=== PATIENT | male | born 1950 | race Caucasian/White ===

== ENCOUNTER 2017-11-07 15:38 | Outpatient (CLI) | payer OTHER ==
--- NOTE | 2017-11-07 17:21 | RAD ---
SIX VIEWS OF THE CERVICAL SPINE 11/07/17 COMPARISON: None. HISTORY: Cervical spine pain, neck pain, preoperative examination. FINDINGS: Incompletely imaged midline sternotomy wires are present. Multiple old right sided rib fractures note d. Old right clavicle fracture. Open mouth odontoid view demonstrates a normal appearing dens and C1-2 articulation. There is multile arian bilateral facet and uncovertebral osteophyte formation, left greater than right, most prominent a t the C3-4 level. Neutral lateral imaging demonstrates prominent anterior osteophyte formation at C2- 3, C3-4, C4-5, C5-6 and C6-7. On the neutral lateral examination, the C6-7 and C7-T1 levels are poorl y assessed. No anterolisthesis or retrolisthesis noted on neutral, flexion, or extension imaging. Of note, the C6-7 and C7-T1 levels are both not well visualized on flexion or extension imaging. A [facility] er's lateral neutral view demonstrates a normal cervicothoracic junction. IMPRESSION: Multilevel degenerative changes within the cervical spine as described above. POS: [facility]
== END 2017-11-07 15:39 | disposition home or self-care (01) ==
LOC: TBSIIMAG 15:38
PROVIDERS: ATTEND Surgery
DX: M54.2 Cervicalgia (principal); M47.892 Other spondylosis, cervical region
CPT/HCPCS: 72050

== ENCOUNTER 2018-02-18 11:32 | Outpatient (CLI) | payer OTHER ==
[2018-02-18 14:11] LABS: INR-International Normal Ratio 0.9; PTT 28.2 SEC (22.9-36.1); Prothrombin Time 12.4 SEC (12.0-14.7)
--- NOTE | 2018-02-18 19:29 | EKG ---
Test Reason : Blood Pressure : / mmHG Vent. Rate : 071 BPM Atrial Rate : 071 BPM P-R Int : 184 ms QRS Dur : 112 ms QT Int : 380 ms P-R-T Axes : 050 015 034 degrees QTc Int : 412 ms Normal sinus rhythm Nonspecific T wave abnormality Abnormal ECG No previous ECGs available Confirmed by JOHNSON BLANK, DR. Frederick ([id number]) on 02/18/2018 7:29:29 PM Referred By: ADI Confirmed By:DR. Yoly ORNELAS MD
== END 2018-02-18 11:33 | disposition home or self-care (01) ==
LOC: LABBT 11:32
PROVIDERS: ATTEND Surgery
DX: Z01.818 Encounter for other preprocedural examination (principal); M47.12 Other spondylosis with myelopathy, cervical region
CPT/HCPCS: 85610; 85730; 93005; 93010

== ENCOUNTER 2018-02-21 10:00 | Inpatient (IN) | payer OTHER ==
[2018-02-21] MEDS ORDERED: ePHEDrine/0.9% NaCl/PF SYRINGE 50 mg/10 ml ONE (11:31)
[2018-02-21] MEDS ORDERED: Glycopyrrolate 0.2 MG/ML 5 ML SYRINGE ONE (11:31)
[2018-02-21] MEDS ORDERED: PROVENTIL INHALER 6.7 G (200 INHALATIONS) ONE (11:31)
[2018-02-21] MEDS ORDERED: Ondansetron PF 4 MG/2 ML Vial ONE (11:31)
[2018-02-21] MEDS ORDERED: Dexamethasone 20 MG/5 ML VIAL ONE (11:31)
[2018-02-21] MEDS ORDERED: Lidocaine 1% PF 5 ML VIAL ONE (11:31)
[2018-02-21] MEDS ORDERED: PROPOFOL 200 MG/20 ML VIAL ONE (11:31)
[2018-02-21] MEDS ORDERED: CEFAZOLIN 2 GM/50 ML BAG ONE (12:55)
[2018-02-21] MEDS ORDERED: Sodium Chloride 0.9% 10 ML ONE (13:32)
[2018-02-21] MEDS ORDERED: Thrombin 5000 UNITS/5 ML VIAL ONE (13:32)
[2018-02-21] MEDS ORDERED: Fentanyl 100 MCG/2 ML VIAL ONE (13:55)
[2018-02-21] MEDS ORDERED: Bacitracin Zinc Ointment 30 gm TUBE ONE (14:58)
[2018-02-21] MEDS ORDERED: SUGAMMADEX SODIUM 500 MG/5 ML VIAL ONE (15:10)
[2018-02-21] MEDS ORDERED: Bisacodyl 10 MG SUPP PR PRN (15:31)
[2018-02-21] MEDS ORDERED: Milk Of Magnesia 30 ML UDCUP PO PRN (15:31)
[2018-02-21] MEDS ORDERED: Fleet Enema 133 ML BOT PR PRN (15:31)
[2018-02-21] MEDS ORDERED: Mag-Al 1200 mg/1200 mg/30 ML UDCUP PO PRN (15:31)
[2018-02-21] MEDS ORDERED: traMADol HCl 50 MG TAB PO PRN (15:31)
[2018-02-21] MEDS ORDERED: HYDROcodone/Acetaminophen 7.5/325 mg Tablet PO PRN (15:31)
[2018-02-21] MEDS ORDERED: Acetaminophen 325 MG TAB PO PRN (15:31)
[2018-02-21] MEDS ORDERED: Sodium Chloride 0.9% 1,000 ML IV SCH (15:45)
[2018-02-21] MEDS ORDERED: Promethazine HCl 25 MG/ML VIAL SLOW IVP PRN (16:12)
[2018-02-21] MEDS ORDERED: PACU-Morphine 4MG/ML VIAL SLOW IVP PRN (16:12)
[2018-02-21] MEDS ORDERED: Ondansetron HCl/PF 4 MG/2 ML Vial IVP PRN (16:12)
[2018-02-21] MEDS ORDERED: Promethazine HCl 25 MG/ML VIAL IM PRN (16:12)
[2018-02-21] MEDS ORDERED: Morphine Sulfate 2 MG/ML SYRINGE SLOW IVP PRN (16:12)
[2018-02-21] MEDS ORDERED: HYDROmorphone 2 MG/ML VIAL SLOW IVP PRN (16:12)
[2018-02-21 17:02] VITALS: BP 124/61; BMI 37.7
[2018-02-21] MEDS: Baclofen 10 MG TAB PO SCH ×2 (17:51→20:01)
[2018-02-21] MEDS: Gabapentin 400 MG CAP PO SCH (20:01)
[2018-02-21] MEDS: Carvedilol 25 MG TAB PO SCH (20:01)
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
[2018-02-21] MEDS ORDERED: Atorvastatin Calcium 40 MG TAB PO SCH (21:00)
[2018-02-21] MEDS ORDERED: Losartan/Hydrochlorothiazide 100 mg/25 mg Tablet PO SCH (21:00)
[2018-02-21] MEDS ORDERED: Insulin Regular 300 UNITS/3 ML VIAL SC SCH (21:30)
[2018-02-21] MEDS ORDERED: Dextrose 50% Abboject 50 ML SYRINGE IVP PRN (22:18)
[2018-02-21] MEDS ORDERED: Dextrose 5% in Water 1,000 ML IV PRN (22:18)
[2018-02-21] MEDS: HumaLOG 300 UNITS/3 ML VIAL SC PRN (22:26)
[2018-02-22] MEDS: HumaLOG 300 UNITS/3 ML VIAL SC PRN ×5 (01:14→16:34)
[2018-02-22] MEDS: HumaLOG 300 UNITS/3 ML VIAL SC SCH ×3 (07:46→16:34)
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
[2018-02-22] MEDS: Gabapentin 400 MG CAP PO SCH ×2 (08:50→15:56)
[2018-02-22] MEDS: Carvedilol 25 MG TAB PO SCH (08:50)
[2018-02-22] MEDS: Baclofen 10 MG TAB PO SCH ×3 (08:51→16:33)
[2018-02-22] MEDS ORDERED: DULoxetine 60 MG CAP PO SCH (09:00)
[2018-02-22] MEDS ORDERED: Magnesium Oxide 400 MG TAB PO SCH (09:00)
[2018-02-22] MEDS ORDERED: Torsemide 20 MG TAB PO SCH (09:00)
[2018-02-22] MEDS ORDERED: Insulin Regular 300 UNITS/3 ML VIAL SC SCH (09:00)
[2018-02-22] MEDS ORDERED: traMADol HCl 50 MG TAB PO PRN (10:12)
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
--- NOTE | 2018-02-22 11:38 | PRG ---
DATE OF SERVICE: 02/22/2018 We attempted surgery yesterday on Mr. Pace. Unfortunately, when we retracted his carotid artery for exposure, he went asystolic. As such, we have admitted him to the ICU. He is neurologically intact. He does have cord compression, and I would advise the surgery be done sooner rather than later; however, we have to identify the pathology in regard to his carotid disease. I really appreciate Dr. Liang and Dr. Jefferson following along. Should his cardiac evaluation be negative, I would like to consider a repeat surgery on Sunday, perhaps with temporary pacemaker placement. Job ID: [id number]
--- NOTE | 2018-02-22 14:07 | PRG ---
DATE OF SERVICE: 02/22/2018 SUBJECTIVE: Mr. Pace had no more bradycardiac events. These clearly were associated with manipulation of his left carotid. Currently, the plan is to pace him before he has his spinal fixation surgery. OBJECTIVE: GENERAL: He is in no distress. LUNGS: Clear. HEART: Regular rhythm. ABDOMEN: Soft. LABORATORY DATA: Glucose has been in the 273 to 309 range, 376 at midnight. He is on a pretty significant dose of 70/30, a better way to manage his diabetes. He has had diabetes for 8 years. It is probably imperative that he is to try to control as he can, given his history of vascular disease and other problems. He is stable for discharge. Can continue home glucose monitoring. Come in for surgery next week, and if he is here for a while after surgery, we can consider changing his insulin. The big issue is whether or not the [place] will pay for the long-acting insulin as opposed to his 70/30. He is certainly is stable to go home. In my opinion, Cardiology will need to see him and Neurosurgery is tentatively planning on surgery on Sunday. Job ID: [id number]
--- NOTE | 2018-02-22 15:13 | PDOC.CTH ---
Cardiology Progress Note - Subjective He is doing well. No new issues. No episodes of bradycardia. - Objective Vital Signs Temp Pulse Ox 02/22/18 12:00 98.5 F 02/22/18 07:16 97 02/22/18 07:00 98.1 F 02/22/18 04:00 98.5 F Weight 240 lb 11.916 oz 02/21/18 02/22/18 02/23/18 06:59 06:59 06:59 Intake Total 2512 1040 Output Total 1325 3250 Balance 1187 -2210 - Physical Examination General/Neuro: alert & oriented x3, NAD Neck: no JVD present Lungs: CTA, unlabored respirations Heart: RRR Abdomen: NT/ND Extremities: + edema B (1+) - Telemetry Telemetry Rhythm: NSR - Assessment/Plan 1. Severe Bradycardia with carotid manipulation. 2. CAD 3. s/p CABG PLAN; - Echo pending - Carotid US pending today. - If no major carotid disease will plan on discharge and likely placement of temporary pacemaker before surgery next week. - Biggest concern is if he develops a profound vagal response and he becomes hypotensive during would need to have levophed or phenilephrine at hand during surgery. If manipulation of vessel is prolonged during case then he will likely need a continuos drip of pressors for support.
[2018-02-22 16:03] VITALS: TEMP 98.4
--- NOTE | 2018-02-22 16:57 | ULT ---
BILATERAL CAROTID DUPLEX ULTRASOUND: 02/22/18 HISTORY: Bradycardia. TECHNIQUE: Powers scale, color flow and spectral doppler imaging of the extracranial carotid artery system is perf ormed bilaterally FINDINGS: No significant plaque formation noted or intimal wall thickening is seen on either side. The peak sys tolic velocity on the right ICA measures 76 cm/s with an end diastolic velocity of 16 cm/s and systol ic ratio of 0.58. The peak systolic velocity in the left ICA measures 92 cm/s with an end diastolic velocity of 24 cm/s and systolic ratio of 0.86. Flow in both vertebral arteries remains antegrade. IMPRESSION: No evidence of hemodynamically significant stenosis. POS: [facility]
--- NOTE | 2018-02-22 17:40 | OP ---
DATE OF PROCEDURE: 02/21/2018 PRE-PROCEDURE DIAGNOSIS: Cervical stenosis with myelopathy. POST-PROCEDURE DIAGNOSIS: Cervical stenosis with myelopathy. OCCUPATIONAL THERAPIST PER DIEM: Jose Manuel Cobb PA-C DESCRIPTION OF PROCEDURE: Via right-sided approach, we proceeded to expose the prevertebral space, unfortunately the patient had asystole, as such we aborted the surgery, irrigated the wound, maximized hemostasis and closed the wound and admitted him to the ICU. Job ID: [id number]
== END 2018-02-22 17:41 | disposition home or self-care (01) | DRG 552 ==
LOC: SDC 10:00 → CCU 16:55
PROVIDERS: ADMIT Surgery; ATTEND Surgery
DX: M47.16 Other spondylosis with myelopathy, lumbar region (principal); G95.89 Other specified diseases of spinal cord; I50.32 Chronic diastolic (congestive) heart failure; I44.2 Atrioventricular block, complete; M48.02 Spinal stenosis, cervical region; I11.0 Hypertensive heart disease with heart failure; G47.33 Obstructive sleep apnea (adult) (pediatric); I25.10 Atherosclerotic heart disease of native coronary artery without angina pectoris; E78.5 Hyperlipidemia, unspecified; G89.4 Chronic pain syndrome; E66.01 Morbid (severe) obesity due to excess calories; Z68.37 Body mass index [BMI] 37.0-37.9, adult
CPT/HCPCS: 36416; 76001; 85610; 85730; 93005; 93010; 93306; 93880; J0131; J1100; J1815; J2001; J2405; J2704; J3010; J3490

== ENCOUNTER 2018-02-26 10:37 | Inpatient (IN) | payer OTHER ==
[2018-02-26] MEDS ORDERED: CEFAZOLIN 2 GM/50 ML BAG ONE (11:18)
[2018-02-26] MEDS ORDERED: Fentanyl 100 MCG/2 ML VIAL ONE ×4 (13:51→19:50)
[2018-02-26] MEDS ORDERED: Midazolam HCl 2 mg/2 ml Vial ONE (13:51)
[2018-02-26] MEDS ORDERED: PHENYLEPHRINE-NS 100 MCG/ML 10 ML SYRINGE ONE ×2 (15:37→16:04)
[2018-02-26] MEDS ORDERED: HYDROmorphone 2 MG/ML VIAL SLOW IVP PRN (15:42)
[2018-02-26] MEDS ORDERED: Promethazine HCl 25 MG/ML VIAL IM PRN ×2 (15:42→16:25)
[2018-02-26] MEDS ORDERED: Ondansetron HCl/PF 4 MG/2 ML Vial IVP PRN (15:42)
[2018-02-26] MEDS ORDERED: Promethazine HCl 25 MG/ML VIAL SLOW IVP PRN (15:42)
[2018-02-26] MEDS ORDERED: Morphine Sulfate 2 MG/ML SYRINGE SLOW IVP PRN (15:42)
[2018-02-26] MEDS ORDERED: PACU-Morphine 4MG/ML VIAL SLOW IVP PRN (15:42)
[2018-02-26] MEDS ORDERED: Meperidine HCl/PF 25 MG/ML VIAL SLOW IVP PRN (15:42)
[2018-02-26] MEDS ORDERED: Ondansetron PF 4 MG/2 ML Vial ONE (16:04)
[2018-02-26] MEDS ORDERED: PROPOFOL 200 MG/20 ML VIAL ONE (16:04)
[2018-02-26] MEDS ORDERED: ePHEDrine/0.9% NaCl/PF SYRINGE 50 mg/10 ml ONE (16:04)
[2018-02-26] MEDS ORDERED: Metoclopramide HCl 10 MG/2 ML VIAL ONE (16:04)
[2018-02-26] MEDS ORDERED: Lidocaine 1% PF 5 ML VIAL ONE (16:04)
[2018-02-26] MEDS ORDERED: Dexamethasone 20 MG/5 ML VIAL ONE (16:04)
[2018-02-26] MEDS ORDERED: Glycopyrrolate 0.2 MG/ML 5 ML SYRINGE ONE (16:04)
[2018-02-26] MEDS ORDERED: Bisacodyl 10 MG SUPP PR PRN (16:25)
[2018-02-26] MEDS ORDERED: Acetaminophen 325 MG TAB PO PRN (16:25)
[2018-02-26] MEDS ORDERED: Fleet Enema 133 ML BOT PR PRN (16:25)
[2018-02-26] MEDS ORDERED: Milk Of Magnesia 30 ML UDCUP PO PRN (16:25)
[2018-02-26] MEDS ORDERED: Mag-Al 1200 mg/1200 mg/30 ML UDCUP PO PRN (16:25)
[2018-02-26] MEDS ORDERED: Morphine 2 MG/ML SYRINGE SLOW IVP PRN (16:25)
[2018-02-26] MEDS: Baclofen 10 MG TAB PO SCH ×2 (19:52→21:02)
[2018-02-26] MEDS: Sodium Chloride 0.9% 1,000 ML IV SCH (19:52)
[2018-02-26] MEDS ORDERED: Losartan/Hydrochlorothiazide 100 mg/25 mg Tablet PO SCH (21:00)
[2018-02-26] MEDS ORDERED: Atorvastatin Calcium 40 MG TAB PO SCH (21:00)
[2018-02-26] MEDS ORDERED: Insulin Regular 300 UNITS/3 ML VIAL SC SCH (21:00)
[2018-02-26] MEDS: CEFAZOLIN 2 GM/50 ML BAG IVPB SCH (21:01)
[2018-02-26] MEDS: Gabapentin 400 MG CAP PO SCH (21:02)
[2018-02-26] MEDS: Carvedilol 25 MG TAB PO SCH (21:02)
[2018-02-26] MEDS ORDERED: Dextrose 5% in Water 1,000 ML IV PRN (22:50)
[2018-02-26] MEDS ORDERED: Dextrose 50% Abboject 50 ML SYRINGE SLOW IVP PRN (22:50)
[2018-02-26] MEDS: traMADol HCl 50 MG TAB PO PRN (23:04)
[2018-02-26] MEDS: HumaLOG 300 UNITS/3 ML VIAL SC PRN (23:13)
[2018-02-26] MEDS: HYDROcodone/Acetaminophen 7.5/325 mg Tablet PO PRN (23:13)
[2018-02-26 23:44] VITALS: BMI 36.2
[2018-02-27] MEDS: CEFAZOLIN 2 GM/50 ML BAG IVPB SCH ×2 (04:33→13:58)
[2018-02-27] MEDS: HYDROcodone/Acetaminophen 7.5/325 mg Tablet PO PRN (04:37)
[2018-02-27] MEDS: HumaLOG 300 UNITS/3 ML VIAL SC PRN ×2 (06:28→11:44)
--- NOTE | 2018-02-27 08:48 | OP ---
DATE OF PROCEDURE: 02/26/2018 [facility]BLE [place]: Jose Manuel Cobb PA-C PREPROCEDURE DIAGNOSES: Cervical stenosis at C3-C4, multilevel autofusion with myelopathy. POSTPROCEDURE DIAGNOSES: Cervical stenosis at C3-C4, multilevel autofusion with myelopathy. PROCEDURES PERFORMED: 1. Anterior C3-C4 diskectomy for decompression of spinal cord nerve roots. 2. Placement of interbody spacer, packed with local bone autograft at time of same incision of allograft C3-C4. 3. Anterior cervical plate and screw fixation, C3-C4. 4. Use of operative microscope for microdissection. DESCRIPTION OF PROCEDURE: After informed consent was obtained from the patient, the patient was brought to OR. Proper patient pause and identification were carried out. Arterial line was placed and temporary pacemaker was placed as the patient had experienced asystole on a prior surgical attempt following retraction of his carotid artery. I should note that his blood pressure and heart rates remained stable, no evidence of asystole during our surgery today. We then identified the prior right anterior cervical wound and this area was sterilely cleansed, prepared, and draped. The wound was then opened with a combination of sharp, monopolar, and blunt dissection, proceeded lateral to the larynx and pharynx and medial to the right carotid sheath were identified. The C3-C4 segment in this area was exposed. Localization confirmed at area of interest. The retraction was then set. Laparoscope was brought in for microdissection at C3-C4. Diskectomy was performed with the use of operative microscope for microdissection with excellent decompression and common dural tube. Interbody spacer of appropriate dimension was then placed, packed with graft for arthrodesis. Microscope was then removed and anterior cervical plate and screw fixation then occurred at C3-C4, final tightening occurred. The wound was then closed in anatomic layers following sprinkling of vancomycin powder and the placement of a drain. The patient emerged from anesthesia. Job ID: [id number]
[2018-02-27] MEDS ORDERED: Magnesium Oxide 400 MG TAB PO SCH (09:00)
[2018-02-27] MEDS ORDERED: DULoxetine 60 MG CAP PO SCH (09:00)
[2018-02-27] MEDS ORDERED: Prevnar 13-Val Conj/PF 0.5 ML SYRINGE IM ONE (09:00)
[2018-02-27] MEDS ORDERED: Torsemide 20 MG TAB PO SCH (09:00)
[2018-02-27] MEDS: Sodium Chloride 0.9% 1,000 ML IV SCH (09:12)
[2018-02-27] MEDS: Gabapentin 400 MG CAP PO SCH ×2 (09:17→13:59)
[2018-02-27] MEDS: Carvedilol 25 MG TAB PO SCH (09:17)
[2018-02-27] MEDS: Baclofen 10 MG TAB PO SCH ×2 (09:17→13:58)
--- NOTE | 2018-02-27 10:56 | PRG ---
DATE OF SERVICE: 02/27/2018 SUBJECTIVE: Mr. Pace did very well intraoperatively with no evidence of asystole or hypotension of concern. His pacemaker will be removed by Dr. Liang today. We have removed his drain. He states his hands already feel as if they are bit improved in regard to paresthesias. He is moving all extremities to command and we will plan for dismissal. I would hold off on his aspirin resumption for 5 to 7 days and his Plavix for 10 to 14 days. Job ID: [id number]
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
[2018-02-27] MEDS: traMADol HCl 50 MG TAB PO PRN (13:58)
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
--- NOTE | 2018-02-27 15:14 | PDOC.EVN ---
Event Note - Event Note Event Note: Chart reviewed, patient seen. Pt denies any complaints. Will follow.
[2018-02-27 15:47] VITALS: TEMP 97.8
--- NOTE | 2018-02-27 16:26 | PDOC.CTH ---
Cardiology Progress Note - Subjective He did well overnight. No new issues. - Objective Vital Signs Temp Pulse Ox 02/27/18 15:46 97.8 F 02/27/18 13:00 98.1 F 02/27/18 12:00 92 L 02/27/18 09:00 98.4 F 02/27/18 08:00 98 Weight 231 lb 7.766 oz 02/26/18 02/27/18 02/28/18 06:59 06:59 06:59 Intake Total 1480 640 Output Total 1500 2250 Balance -20 -1610 - Physical Examination General/Neuro: alert & oriented x3, NAD Neck: no JVD present Lungs: CTA, unlabored respirations Heart: RRR Abdomen: NT/ND Extremities: + edema B - Telemetry Telemetry Rhythm: NSR - Assessment/Plan 1. 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 Likely from increased vagal tone. PLAN; - Temporary pacer worked very well and he was paced during procedure without BP issues. - Temp pacer removed. May pull femoral line any time. - No indication for a permanent pacemaker. - he has remained in sinus rhythm since yesterday. - Will sign off. Please call with any questions.
--- NOTE | 2018-02-27 20:57 | CCL ---
DATE OF SERVICE: 02/26/18 PREPROCEDURE DIAGNOSIS: Bradycardia during coronary artery instrumentation. PROCEDURE PERFORMED: 1. Temporary pacemaker placement. 2. Central venous line placement on the left femoral vein. SUMMARY: The patient is a pleasant 67-year-old white gentleman who came to the hospital for planned cervical n zuleima procedure in which requires instrumentation of the carotid artery which resulted on the last atte mpt in asystole. He is getting a temporary pacemaker preemptively before surgery to make sure this is not the case. Access was obtained with modified Seldinger technique, left femoral vein successfully. We then advan vipul and placed a 5 [place] sheath. Through the sheath, balloon tip temporary pacer catheter was advanc ed and placed into the apex of the right ventricle successfully. We were able to capture pacing as l ow as 0.8 amperes and this was set at 5 at 80 beats per minutes successfully pacing him. The catheter was then secured and he will undergo surgery later today. May discontinue catheter once out of surgery and as long as there is no significant amount of inflamm ation around the carotid artery.
== END 2018-02-27 17:00 | disposition home or self-care (01) | DRG 472 ==
LOC: SDC 10:37 → CCU 22:22
PROVIDERS: ADMIT Surgery; ATTEND Surgery
PROC: 0RB30ZZ Excision of Cervical Vertebral Disc, Open Approach (ICD-10-PCS; principal; 2018-02-26)
PROC: 0RG10A0 Fusion of Cervical Vertebral Joint with Interbody Fusion Device, Anterior Approach, Anterior Column, Open Approach (ICD-10-PCS; 2018-02-26)
PROC: 00NW0ZZ Release Cervical Spinal Cord, Open Approach (ICD-10-PCS; 2018-02-26)
PROC: 5A1223Z Performance of Cardiac Pacing, Continuous (ICD-10-PCS; 2018-02-26)
PROC: 02HV33Z Insertion of Infusion Device into Superior Vena Cava, Percutaneous Approach (ICD-10-PCS; 2018-02-26)
DX: M47.16 Other spondylosis with myelopathy, lumbar region (principal); I50.32 Chronic diastolic (congestive) heart failure; I44.2 Atrioventricular block, complete; I25.10 Atherosclerotic heart disease of native coronary artery without angina pectoris; E11.65 Type 2 diabetes mellitus with hyperglycemia; I11.0 Hypertensive heart disease with heart failure; G89.4 Chronic pain syndrome
CPT/HCPCS: 33210; 36416; 76001; C1713; C1769; C1776; J1100; J1644; J1815; J2001; J2250; J2405; J2704; J2765; J3010; J3370

== ENCOUNTER 2018-04-15 12:50 | Outpatient (CLI) | payer OTHER ==
--- NOTE | 2018-04-15 16:35 | RAD ---
CERVICAL SPINE FOUR VIEWS: 04/15/2018 HISTORY: Neck surgery on 02/26/2019. The patient complained of balance issues. Cervicalgia. COMPARISON: 11/07/2017 FINDINGS: The C1 to the C5-C6 level is well seen on the lateral view. The remainder of the cervical spine is p artially imaged on the Swimmer's view, although osseous detail is limited. There are post surgical changes related to anterior cervical fusion at the C3-C4 level with anterior plate and screws transfixing this level. Prominent bridging anterior osteophyte formation is seen ex tending from the C2-C3 to the C6-C7 level, with probable bridging osteophytes anteriorly at the C7-T1 level. No obvious fracture is seen and, as stated above, no subluxation is present. There is defor mity of the spinous process of the C3 vertebral body, which is a stable finding. Prominent calcifica tion is seen in the soft tissues posterior to the C4 vertebral body, unchanged from the prior exam. Prevertebral soft tissues are within normal limits. Facet degenerative changes are present. Partial visualization of median sternotomy wires and findings likely related to CABG are present. Deformity of the right chest wall is present with suggestion of remote rib fractures and osseous bridging of t he ribs on the right. This is incompletely imaged. IMPRESSION: 1. Limited evaluation of the cervical spine, but there are prominent bridging anterior osteophytes e xtending the length of the cervical spine, aside from anterior plate and screws now transfixing the C3-C4 level; the previously noted prominent osteophyte anterior at this level is no longer seen. No hardware complications appreciated. Intradiskal prosthesis is present. 2. Remote fracture and deformities of the upper right-sided ribs. POS: [facility]
== END 2018-04-15 12:51 | disposition home or self-care (01) ==
LOC: TBSIIMAG 12:50
PROVIDERS: ATTEND Surgery
DX: M54.2 Cervicalgia (principal); M25.78 Osteophyte, vertebrae; T84.9XXA Unspecified complication of internal orthopedic prosthetic device, implant and graft, initial encounter; M95.4 Acquired deformity of chest and rib
CPT/HCPCS: 72040